=== PATIENT | male | born 1945 | race Caucasian/White ===

== ENCOUNTER 2018-06-05 18:17 | Emergency (ER) | payer MEDICARE, OTHER ==
[2018-06-05 18:34] VITALS: BP 166/85; PULSE 55; RESP 18; TEMP 97.8
--- NOTE | 2018-06-05 19:55 | CT ---
EXAMINATION TYPE: CT brain cspine wo con, CT facial bones wo con DATE OF EXAM: 06/05/2018 COMPARISON: NONE HISTORY: Fall today. Landed on face and mouth. Pain around right front teeth. Headache and neck pain. CT DLP: 1120.4 (accession [id number]), 605.9 (accession [id number]) mGycm. Automated Exposure Control for Dose Reduction was Utilized. TECHNIQUE: CT scan of the head , facial bones, and cervical spine are all performed without contrast. FINDINGS: There is no acute intracranial hemorrhage or midline shift identified. There is ventricul ar and sulcal prominence consistent with diffuse age-related cerebral atrophy. The calvarium is intac t. The mandible is intact. The temporomandibular joints are maintained bilaterally. Nasal bones are inta ct. Orbital floors and geronimo are intact. The globes are intact bilaterally. Intraconal fat is preserv ed. The zygomatic arches are intact bilaterally. The pterygoid plates are intact. Maxilla is unremark able. Visualized paranasal sinuses are clear. Cervical spine is visualized in its entirety from C1 through upper thoracic levels and demonstrates s traightened alignment without evidence of acute fracture or dislocation. Prevertebral soft tissue ap pears within normal limits. The C1-C2 articulation is within normal limits on the coronal images. Ve rtebral body heights are maintained. There is moderate multilevel disc space narrowing and spurring m ost prominent C4-C5 through C6-C7 levels. Review of axial images shows multilevel uncovertebral facet degenerative changes contributing to mult ilevel neural foraminal narrowing. There is mild effacement of anterior thecal sac at several levels due to spur disc complexes. No suspicious large disc herniation is seen. Thyroid gland is somewhat sm all in size. Lung apices are not sufficiently imaged. IMPRESSION: 1. There is no acute fracture or dislocation evident in the cervical spine. 2. No acute intracranial hemorrhage or midline shift is seen. 3. No acute displaced facial bone fracture identified.
--- NOTE | 2018-06-05 19:56 | XR ---
EXAMINATION TYPE: XR knee complete RT DATE OF EXAM: 06/05/2018 CLINICAL HISTORY: Pain and lacerations after fall injury TECHNIQUE: Three views of the right knee are obtained. COMPARISON: None. FINDINGS: There is no acute fracture/dislocation evident in right knee. There is fairly moderate tri compartment joint space loss with mild spurring. Increased density suprapatellar bursa suspicious for small effusion. IMPRESSION: There is no acute fracture or dislocation in the right knee.
--- NOTE | 2018-06-05 20:08 | ED ---
General Adult HPI - General Chief complaint: Fall Stated complaint: facial and rt knee injury Time Seen by Provider: 06/05/18 18:44 Source: patient, RN notes reviewed Mode of arrival: wheelchair Limitations: no limitations - History of Present Illness Initial comments: 72-year-old male says to the emergency determine for chief complaint of fall occurring about one hour prior to arrival. Patient states he was at the [facility] [place] when he tripped over a piece of cement and fell on his right knee. Patient also hit his face on the ground causing a laceration to his right upper lip. Patient denies hitting his head. Patient denies any loss of consciousness. Patient denies being on blood thinners. Patient denies any head or neck pain. Patient denies any dizziness precipitating the fall. Patient states his knee is somewhat painful. He states he is able to walk on it without difficulty. Patient denies any other injuries or pain in the upper extremities or left lower extremity.Patient has no other complaints at this time including shortness of breath, chest pain, abdominal pain, nausea or vomiting, headache, or visual changes. - Related Data Allergies Allergy/AdvReac Type Severity Reaction Status Date / Time No Known Allergies Allergy Verified 06/05/18 18:30 Review of Systems ROS Statement: Those systems with pertinent positive or pertinent negative responses have been documented in the HPI. ROS Other: All systems not noted in ROS Statement are negative. Past Medical History Past Medical History: GERD/Reflux, Thyroid Disorder Additional Past Medical History / Comment(s): insomnia History of Any Multi-Drug Resistant Organisms: None Reported Past Surgical History: Orthopedic Surgery Additional Past Surgical History / Comment(s): bilateral shoulder surgery Past Psychological History: No Psychological Hx Reported Smoking Status: Never smoker Past Alcohol Use History: Occasional Past Drug Use History: None Reported General Exam Limitations: no limitations General appearance: alert, in no apparent distress Head exam: Present: atraumatic, normocephalic, normal inspection Eye exam: Present: normal appearance, PERRL, EOMI. Absent: scleral icterus, conjunctival injection, nystagmus, periorbital swelling, periorbital tenderness (Negative raccoon sign) ENT exam: Present: mucous membranes moist, TM's normal bilaterally (Tympanic membranes normal bilaterally. No evidence of hemotympanum), normal external ear exam (Negative ecchymosis behind the ears), other (teeth appear intact, no chipping or avulsion of tooth). Absent: normal oropharynx (Patient has a 1 cm laceration on the anterior portion of the right upper lip) Neck exam: Present: normal inspection, full ROM. Absent: tenderness, meningismus, lymphadenopathy Respiratory exam: Present: normal lung sounds bilaterally. Absent: respiratory distress, wheezes, rales, rhonchi, stridor Cardiovascular Exam: Present: regular rate, normal rhythm, normal heart sounds. Absent: systolic murmur, diastolic murmur, rubs, gallop, clicks Extremities exam: Present: tenderness (Tenderness to the lateral aspect of the right knee), normal capillary refill (Capillary refill less than 2 seconds and pedal pulse 2+ in the right lower extremity), other (Sensation intact in the right lower extremity. Patient does have a 4 cm x 4 cm and 3 cm x 3 cm superficial abrasion to the lateral right knee). Absent: full ROM (Patient has 90 flexion of the right knee and full extension), joint swelling (No swelling or ecchymosis noted on the right knee) Back exam: Absent: tenderness Neurological exam: Present: alert, oriented X3, CN II-XII intact Psychiatric exam: Present: normal affect, normal mood Course Vital Signs 06/05/18 18:30 Temperature 97.8 F Pulse Rate 55 L Respiratory 18 Rate Blood Pressure 166/85 O2 Sat by Pulse 100 Oximetry Procedures - Laceration Laceration #1 Consent Obtained: verbal consent Indication: laceration Site: lip Description: stellate Depth: simple, single layer Anesthetic Used: lidocaine 1% Anesthesia Technique: local infiltration Amount (mls): 1 Pre-repair: wound explored, irrigated extensively, deep structures intact Type of Sutures: other (absorbable rapide) Size of Sutures: 5-0 Number of Sutures: 2 Technique: simple, interrupted Medical Decision Making - Medical Decision Making 72-year-old male presents to the emergency department for chief complaint of laceration to the right upper lip. On exam patient does have a 1 cm laceration. This was stitched with absorbable sutures after being thoroughly irrigated with saline and numbed with lidocaine. Patient also has right knee pain with some limited range of motion and mild tenderness to the lateral aspect. 2 abrasions noted which were cleaned and wrapped. No focal neuro deficits on exam. Patient did not hit his head and denies headache or neck pain at this time. No blood thinners. CT shows no acute fracture or dislocation evident in the cervical spine. CT brain shows no acute intracranial hemorrhage or midline shift. CT facial bones shows no acute displaced facial bone fracture identified. X-ray shows no fracture in the right knee. Patient is ambulating without difficulty in the emergency department. Patient will follow up with primary care in 1-2 days. He will return to the emergency department if he notices any signs of infection which were discussed thoroughly with him. Disposition Clinical Impression: Lip laceration, Contusion of knee, right, Abrasion of knee, right Disposition: HOME SELF-CARE Condition: Good Instructions: Abrasion (ED) Additional Instructions: Please take Tylenol for pain. Please rest ice and elevate the right knee. Apply ice to the lip. Sutures will dissolve on their own. Return to the emergency department if he notices any signs of infection on the knee or lip such as spreading redness, streaking redness, drainage or fever. Otherwise follow-up with primary care in 1-2 days. Is patient prescribed a controlled substance at d/c from ED?: No Referrals: Nonstaff,Physician [Primary Care Provider] - 1-2 days Cam Nguyen MD [STAFF PHYSICIAN] - 1-2 days Time of Disposition: 20:36
[2018-06-05] MEDS ORDERED: DIPH,PERTUS(ACELL)TETVAC-LF 0.5 ML VIAL IM ONE (20:12)
== END 2018-06-05 20:49 | disposition home or self-care (01) ==
LOC: EC 18:17
DX: S01.511A Laceration without foreign body of lip, initial encounter (principal); S80.01XA Contusion of right knee, initial encounter; Z23 Encounter for immunization; W01.198A Fall on same level from slipping, tripping and stumbling with subsequent striking against other object, initial encounter; Y92.830 Public park as the place of occurrence of the external cause
CPT/HCPCS: 12011; 70450; 70486; 72125; 90471; 90715; 99284